=== PATIENT | male | born 1970 | race Caucasian/White ===

== ENCOUNTER 2017-11-20 08:56 | Emergency (ER) | payer OTHER ==
[~2017-11-20] VITALS: Ht 182.9 cm; Wt 90.7 kg
[2017-11-20] MEDS ORDERED: FLUO10 PO (09:26)
[2017-11-20] MEDS ORDERED: METF500C (09:26)
[2017-11-20] MEDS ORDERED: TRAM50 PO (09:27)
[2017-11-20] MEDS ORDERED: IBUP800 PO (10:33)
[2017-11-20] MEDS ORDERED: METF500C PO (10:33)
== END 2017-11-20 10:41 | disposition home or self-care (01) ==
LOC: ER 08:56
DX: Z76.0 Encounter for issue of repeat prescription (principal); Z88.0 Allergy status to penicillin; Z79.899 Other long term (current) drug therapy; Z79.84 Long term (current) use of oral hypoglycemic drugs; E11.9 Type 2 diabetes mellitus without complications; F17.210 Nicotine dependence, cigarettes, uncomplicated; F25.9 Schizoaffective disorder, unspecified
CPT/HCPCS: 99281

== ENCOUNTER 2017-11-22 13:48 | Emergency (ER) | payer SELFPAY ==
[~2017-11-22] VITALS: Ht 182.9 cm; Wt 90.7 kg
[~2017-11-22 13:48] MED LIST: FLUO10 PO; IBUP800 PO; METF500C; METF500C PO; TRAM50 PO
== END 2017-11-22 14:22 | disposition home or self-care (01) ==
LOC: ER 13:48
DX: Z76.0 Encounter for issue of repeat prescription (principal); E11.9 Type 2 diabetes mellitus without complications; F17.200 Nicotine dependence, unspecified, uncomplicated; Z88.0 Allergy status to penicillin; Z79.899 Other long term (current) drug therapy; Z79.84 Long term (current) use of oral hypoglycemic drugs

== ENCOUNTER 2017-12-09 11:59 | Emergency (ER) | payer SELFPAY ==
[~2017-12-09] VITALS: Ht 182.9 cm; Wt 90.7 kg
[2017-12-09] MEDS ORDERED: FLUO10 PO (12:27)
== END 2017-12-09 12:30 | disposition home or self-care (01) ==
LOC: ER 11:59
DX: Z76.0 Encounter for issue of repeat prescription (principal); E11.9 Type 2 diabetes mellitus without complications; F20.9 Schizophrenia, unspecified; F17.210 Nicotine dependence, cigarettes, uncomplicated; Z88.0 Allergy status to penicillin; Z79.899 Other long term (current) drug therapy; Z79.84 Long term (current) use of oral hypoglycemic drugs
CPT/HCPCS: 99281